=== PATIENT | male | born 1930 | race Caucasian/White ===

== ENCOUNTER 2019-03-18 17:27 | Observation (INO) ==
[2019-03-18] MEDS ORDERED: cefTRIAXone 1,000 MG in 0.9 % Sodium Chloride Mini Bag 100 ML IVPB ONE (18:50)
[2019-03-18] MEDS ORDERED: Lidocaine Jelly 6ml 1 APPL/6 ML JEL.PF.APP MM ONE (19:37)
[2019-03-18] MEDS ORDERED: *HR* HYDROmorphone (PF) 1 MG/ML SYRINGE IVP ONE ×2 (19:38→21:26)
[2019-03-18] MEDS ORDERED: *HR* Belladonna Alkaloids/Opium 30 MG RECTAL SUPPOSITORY RC ONE (22:08)
[2019-03-19] MEDS ORDERED: *HR* HYDROmorphone (PF) 1 MG/ML SYRINGE IM ONE (01:31)
[2019-03-19] MEDS ORDERED: Naloxone 0.4 MG/ML INJ IVP PRN (01:51)
[2019-03-19 05:07] LABS: Hematocrit 38.5 % (37.5-50.1); Hemoglobin 12.3 g/dL (12.9-16.9); Mean Corpuscular HGB Conc 31.9 g/dL (31.6-35.5); Mean Corpuscular Hemoglobin 29.9 pg (28.0-33.3); Mean Corpuscular Volume 93.7 fL (83.0-100.0); Mean Platelet Volume 9.6 fL (9.4-12.4); Platelet Count 231 K/mcL (140-400); Red Blood Count 4.11 M/mcL (4.19-5.50); White Blood Count 7.5 K/mcL (4.3-11.1)
[2019-03-19 05:13] LABS: INR 1.1
[2019-03-19 05:31] LABS: Lymphocytes # 1.2 K/mcL (0.6-4.6); Monocytes # 1.1 K/mcL (0.0-1.3); Neutrophils # 5.1 K/mcL (1.6-8.9); Platelet Estimate Normal (Normal); Reactive Lymphocytes Present (Not Present)
[2019-03-19 05:37] LABS: % Iron Saturation 7 % (20-55); Alanine Aminotransferase 8 Units/L (7-52); Albumin 3.7 g/dL (3.5-5.7); Albumin/Globulin Ratio 1.2 (1.1-2.2); Alkaline Phosphatase 63 Units/L (34-104); Aspartate Amino Transferase 16 Units/L (13-39); BUN/Creatinine Ratio 28 (6-26); Bilirubin,Total 0.5 mg/dL (0.3-1.0); Blood Urea Nitrogen 32 mg/dL (8-23); Carbon Dioxide 26 mEq/L (23-29); Chloride 105 mEq/L (98-107); Chol/HDL Ratio 2.2 (0-4.9); Cholesterol 128 mg/dL (< 200); Globulin 3.2 g/dL (2.4-3.5); Glucose 110 mg/dL (70-105); HDL Cholesterol 59 mg/dL (40-59); Iron 20 mcg/dL (65-175); LDL Cholesterol,Calculated 55 mg/dL (0-99); Magnesium 1.7 mg/dL (1.6-2.6); Osmolality,Calculated 296 (280-300); Phosphorous 3.2 mg/dL (2.7-4.5); Potassium 4.1 mEq/L (3.5-5.1); Sodium 139 mEq/L (136-145); Total Protein 6.9 g/dL (6.4-8.9); Transferrin 219 mg/dL (203-362); Triglycerides 72 mg/dL (< 150); Troponin I 0.05 ng/mL (< 0.04); eGFR For African Americans > 60 (> 60); eGFR For Non-African Americans 60 (> 60)
[2019-03-19] MEDS ORDERED: *HR* HYDROmorphone (PF) 1 MG/ML SYRINGE IVP STA (05:44)
[2019-03-19 05:55] LABS: Ferritin 98 ng/mL (20-250); Folate > 22.3 ng/mL (3.0-16.0); Vitamin B12 644 pg/mL (250-1100)
[2019-03-19 08:09] LABS: Estimated Average Glucose 120 mg/dl
[2019-03-19 11:40] LABS: Bilirubin,Urine Negative (Negative); Blood,Urine Large (Negative); Clarity,Urine Turbid (Clear); Color,Urine Yellow (Yellow); Glucose,Urine (UA) Normal (Normal); Ketones,Urine Trace mg/dL (Negative); Leukocyte Esterase,Urine Large (Negative); Nitrite,Urine Negative (Negative); Protein,Urine >=300 mg/dL (Neg-Trace); Specific Gravity,Urine 1.025 (1.010-1.025); Urobilinogen,Urine Normal (Normal)
[2019-03-19 11:42] LABS: Bacteria,Urine Moderate per hpf (None-Few); RBC,Urine TNTC per hpf (0-3); Squamous Epithelial Cell,Urine Many per lpf (None-Few); WBC,Urine TNTC per hpf (0-3)
[2019-03-19] MEDS ORDERED: *HR* Heparin 5,000 UNIT/ML VIAL SQ SCH (14:00)
[2019-03-19] MEDS ORDERED: cefTRIAXone 1,000 MG in Water for inj. (sterile) 10 ML IVP ONE (14:28)
[2019-03-19 15:49] VITALS: BP 142/77
== END 2019-03-19 17:44 | disposition home or self-care (01) ==
LOC: EMEROOARM 17:27 → 3NENU 17:27 → SUATTDRO 22:33 → 3NENU 22:55 → SUATTDRO 03-19 02:25
PROVIDERS: ADMIT Internal Medicine; ATTEND Internal Medicine